=== PATIENT | male | born 1975 | race African-American/Black ===

== ENCOUNTER 2022-09-02 12:44 | Inpatient (IN) | payer OTHER ==
[2022-09-02] MEDS ORDERED: MAGNESIUM HYDROX 2400MG/30ML ORAL SUSPENSION 30 ML CUP PO PRN (16:00)
[2022-09-02] MEDS ORDERED: ACETAMINOPHEN 325 MG TABLET (FP) PO PRN ×2 (16:00)
[2022-09-02] MEDS ORDERED: BISMUTH SUBSALICYLATE 524 MG/30 ML PO PRN (16:00)
[2022-09-02] MEDS ORDERED: LOPERAMIDE HCL 2 MG CAPSULE PO PRN (16:00)
[2022-09-02] MEDS ORDERED: MAG HYDROX/AL HYDROX/SIMETH 30 ML UNIT-DOSE CUP PO PRN (16:00)
[2022-09-02] MEDS ORDERED: NALOXONE HCL (KLOXXADO) 8 MG SPRAY NS PRN (16:00)
[2022-09-02] MEDS ORDERED: MAGNESIUM CITRATE 300 ML BOTTLE PO PRN (16:00)
[2022-09-02] MEDS ORDERED: BENZOCAINE/MENTHOL (CHLORASEPTIC ) LOZENGE MM PRN (16:00)
[2022-09-02] MEDS ORDERED: DICYCLOMINE HCL 10 MG CAPSULE PO PRN (16:00)
[2022-09-02] MEDS ORDERED: IBUPROFEN 600 MG TABLET (FP) PO PRN (16:00)
[2022-09-02] MEDS ORDERED: ONDANSETRON *ODT* 4 MG TABLET SL PRN (16:00)
[2022-09-02] MEDS ORDERED: IBUPROFEN 400 MG TABLET (FP) PO PRN (16:00)
[2022-09-02] MEDS ORDERED: NICOTINE 10 MG CARTRIDGE (INHALER) IH PRN (16:00)
[2022-09-02] MEDS: METHOCARBAMOL 500 MG TABLET PO PRN (17:17)
[2022-09-02] MEDS: hydrOXYzine PAMOATE 25 MG CAPSULE (FP) PO PRN (17:17)
[2022-09-02] MEDS: MELATONIN 5 MG TABLETS PO SCH ×2 (22:44→22:48)
[2022-09-02] MEDS: THIAMINE HCL 100 MG TABLET (FP) PO SCH ×2 (22:44→22:47)
[2022-09-03] MEDS: PRENATAL VITAMINS W/ FOLIC ACID TABLET (FP) PO SCH (10:49)
[2022-09-03] MEDS: hydrOXYzine PAMOATE 25 MG CAPSULE (FP) PO PRN ×2 (10:50→22:22)
[2022-09-03] MEDS: METHOCARBAMOL 500 MG TABLET PO PRN (10:50)
[2022-09-03] MEDS: NICOTINE 21 MG/24 HOURS TOPICAL PATCH TD SCH (10:51)
[2022-09-03 11:27] LABS: HEMATOCRIT 41.9 % (35.4-49); HEMOGLOBIN 13.6 GM/dL (11.7-16.9); MCH 29.8 pg (25.7-33.7); MCHC 32.4 g/dl (32.0-35.9); MEAN CELL VOLUME 91.9 fl (80-96); MEAN PLT VOLUME 7.9 fl (7.5-11.1); PLATELET COUNT 314 10^3/uL (134-434); RBC 4.56 M/mm3 (4.00-5.60); RDW 15.1 % (11.9-15.9); WHITE BLOOD COUNT 4.6 K/mm3 (4.0-10.0)
[2022-09-03 11:32] LABS: ALBUMIN 3.4 g/dl (3.4-5.0); CALCIUM 8.9 mg/dL (8.5-10.1)
[2022-09-03 11:33] LABS: BLOOD UREA NITROGEN 11.4 mg/dL (7-18)
[2022-09-03 11:37] LABS: BILIRUBIN,TOTAL 0.6 mg/dL (0.2-1); CREATININE 1.1 mg/dL (0.55-1.3); TOT PROT 6.6 g/dl (6.4-8.2)
[2022-09-03] MEDS: MELATONIN 5 MG TABLETS PO SCH (22:22)
[2022-09-03] MEDS: THIAMINE HCL 100 MG TABLET (FP) PO SCH (22:22)
[2022-09-04 09:48] VITALS: BP 123/71; PULSE 88; RESP 16; TEMP 97.5
[2022-09-04] MEDS: PRENATAL VITAMINS W/ FOLIC ACID TABLET (FP) PO SCH (11:02)
[2022-09-04] MEDS: NICOTINE 21 MG/24 HOURS TOPICAL PATCH TD SCH (11:02)
== END 2022-09-04 11:25 | disposition other institution (70) | DRG 774 ==
LOC: YASAS 12:44 → Y6N 16:38
PROVIDERS: ADMIT Allergy & Immunology; ATTEND Surgery
PROC: HZ2ZZZZ Detoxification Services for Substance Abuse Treatment (ICD-10-PCS; principal; 2022-09-02)
DX: F10.230 Alcohol dependence with withdrawal, uncomplicated (principal); F14.10 Cocaine abuse, uncomplicated; F12.20 Cannabis dependence, uncomplicated; F17.210 Nicotine dependence, cigarettes, uncomplicated; Z28.310 Unvaccinated for COVID-19; Z28.9 Immunization not carried out for unspecified reason; Z59.00 Homelessness unspecified
CPT/HCPCS: 36415; 80053; 85027; 86780; C9803-CS; U0003; U0005

== ENCOUNTER 2022-09-04 14:31 | Inpatient (IN) | payer OTHER ==
[2022-09-04 15:31] VITALS: BMI 30.9
[2022-09-04] MEDS ORDERED: LOPERAMIDE HCL 2 MG CAPSULE PO PRN (18:27)
[2022-09-04] MEDS ORDERED: MAGNESIUM CITRATE 300 ML BOTTLE PO PRN (18:27)
[2022-09-04] MEDS ORDERED: P-EPHED 60MG/TRIPROLIDI 2.5MG TABLET PO PRN (18:27)
[2022-09-04] MEDS ORDERED: BENZOCAINE/MENTHOL (CHLORASEPTIC ) LOZENGE MM PRN (18:27)
[2022-09-04] MEDS ORDERED: MAGNESIUM HYDROX 2400MG/30ML ORAL SUSPENSION 30 ML CUP PO PRN (18:27)
[2022-09-04] MEDS ORDERED: guaiFENesin 200 MG/10 ML 10 ML UNIT-DOSE CUPS PO PRN (18:27)
[2022-09-04] MEDS ORDERED: MAG HYDROX/AL HYDROX/SIMETH 30 ML UNIT-DOSE CUP PO PRN (18:27)
[2022-09-04] MEDS: THIAMINE HCL 100 MG TABLET (FP) PO SCH (22:58)
[2022-09-04] MEDS: MELATONIN 5 MG TABLETS PO SCH (22:58)
[2022-09-05] MEDS: PRENATAL VITAMINS W/ FOLIC ACID TABLET (FP) PO SCH (09:57)
[2022-09-05] MEDS: NICOTINE 10 MG CARTRIDGE (INHALER) IH PRN (09:58)
[2022-09-05] MEDS ORDERED: NICOTINE 7 MG/24 HOURS TOPICAL PATCH TD SCH (10:00)
[2022-09-05] MEDS ORDERED: NICOTINE 7 MG/24 HOURS TOPICAL PATCH TD PRN (14:36)
[2022-09-05] MEDS: MELATONIN 5 MG TABLETS PO SCH (21:17)
[2022-09-05] MEDS: THIAMINE HCL 100 MG TABLET (FP) PO SCH (21:17)
[2022-09-05] MEDS: hydrOXYzine PAMOATE 25 MG CAPSULE (FP) PO PRN (21:18)
[2022-09-06] MEDS: PRENATAL VITAMINS W/ FOLIC ACID TABLET (FP) PO SCH (10:03)
[2022-09-06] MEDS: NICOTINE 10 MG CARTRIDGE (INHALER) IH PRN (10:04)
[2022-09-06] MEDS: THIAMINE HCL 100 MG TABLET (FP) PO SCH (21:16)
[2022-09-06] MEDS: MELATONIN 5 MG TABLETS PO SCH (21:16)
[2022-09-06] MEDS: hydrOXYzine PAMOATE 25 MG CAPSULE (FP) PO PRN (21:17)
[2022-09-07] MEDS: IBUPROFEN 400 MG TABLET (FP) PO PRN ×2 (06:33→17:56)
[2022-09-07] MEDS: NICOTINE 10 MG CARTRIDGE (INHALER) IH PRN (09:59)
[2022-09-07] MEDS: PRENATAL VITAMINS W/ FOLIC ACID TABLET (FP) PO SCH (09:59)
[2022-09-07] MEDS: METHOCARBAMOL 750 MG TABLET PO SCH ×2 (13:15→21:06)
[2022-09-07] MEDS: THIAMINE HCL 100 MG TABLET (FP) PO SCH (21:06)
[2022-09-07] MEDS: MELATONIN 5 MG TABLETS PO SCH (21:06)
[2022-09-07] MEDS: hydrOXYzine PAMOATE 25 MG CAPSULE (FP) PO PRN (21:06)
[2022-09-08] MEDS: METHOCARBAMOL 750 MG TABLET PO SCH ×3 (06:38→21:16)
[2022-09-08] MEDS: PRENATAL VITAMINS W/ FOLIC ACID TABLET (FP) PO SCH (09:58)
[2022-09-08] MEDS: hydrOXYzine PAMOATE 25 MG CAPSULE (FP) PO PRN (21:16)
[2022-09-08] MEDS: MELATONIN 5 MG TABLETS PO SCH (21:16)
[2022-09-08] MEDS: THIAMINE HCL 100 MG TABLET (FP) PO SCH (21:16)
[2022-09-09] MEDS: METHOCARBAMOL 750 MG TABLET PO SCH ×3 (06:16→21:19)
[2022-09-09] MEDS: IBUPROFEN 400 MG TABLET (FP) PO PRN (09:17)
[2022-09-09] MEDS: PRENATAL VITAMINS W/ FOLIC ACID TABLET (FP) PO SCH (10:36)
[2022-09-09] MEDS: ACETAMINOPHEN 325 MG TABLET (FP) PO PRN (11:51)
[2022-09-09] MEDS: hydrOXYzine PAMOATE 25 MG CAPSULE (FP) PO PRN (21:18)
[2022-09-09] MEDS: MELATONIN 5 MG TABLETS PO SCH (21:18)
[2022-09-09] MEDS: THIAMINE HCL 100 MG TABLET (FP) PO SCH (21:19)
[2022-09-10] MEDS: METHOCARBAMOL 750 MG TABLET PO SCH ×3 (07:27→21:27)
[2022-09-10] MEDS: IBUPROFEN 400 MG TABLET (FP) PO PRN (09:03)
[2022-09-10] MEDS: PRENATAL VITAMINS W/ FOLIC ACID TABLET (FP) PO SCH (10:29)
[2022-09-10] MEDS: MELATONIN 5 MG TABLETS PO SCH (21:27)
[2022-09-10] MEDS: hydrOXYzine PAMOATE 25 MG CAPSULE (FP) PO PRN (21:27)
[2022-09-10] MEDS: THIAMINE HCL 100 MG TABLET (FP) PO SCH (21:27)
[2022-09-11] MEDS: METHOCARBAMOL 750 MG TABLET PO SCH ×3 (06:11→21:21)
[2022-09-11] MEDS: ACETAMINOPHEN 325 MG TABLET (FP) PO PRN (09:08)
[2022-09-11] MEDS: PRENATAL VITAMINS W/ FOLIC ACID TABLET (FP) PO SCH (09:08)
[2022-09-11] MEDS: NICOTINE 10 MG CARTRIDGE (INHALER) IH PRN (09:09)
[2022-09-11] MEDS: IBUPROFEN 400 MG TABLET (FP) PO PRN (16:42)
[2022-09-11] MEDS: hydrOXYzine PAMOATE 25 MG CAPSULE (FP) PO PRN (21:21)
[2022-09-11] MEDS: MELATONIN 5 MG TABLETS PO SCH (21:21)
[2022-09-11] MEDS: THIAMINE HCL 100 MG TABLET (FP) PO SCH (21:21)
[2022-09-12] MEDS: METHOCARBAMOL 750 MG TABLET PO SCH ×3 (07:26→21:26)
[2022-09-12] MEDS: IBUPROFEN 400 MG TABLET (FP) PO PRN (09:15)
[2022-09-12] MEDS: PRENATAL VITAMINS W/ FOLIC ACID TABLET (FP) PO SCH (10:36)
[2022-09-12] MEDS: MELATONIN 5 MG TABLETS PO SCH (21:25)
[2022-09-12] MEDS: THIAMINE HCL 100 MG TABLET (FP) PO SCH (21:25)
[2022-09-12] MEDS: hydrOXYzine PAMOATE 25 MG CAPSULE (FP) PO PRN (21:26)
[2022-09-13] MEDS: METHOCARBAMOL 750 MG TABLET PO SCH ×3 (06:31→21:26)
[2022-09-13] MEDS: PRENATAL VITAMINS W/ FOLIC ACID TABLET (FP) PO SCH (09:58)
[2022-09-13] MEDS: IBUPROFEN 400 MG TABLET (FP) PO PRN (17:18)
[2022-09-13] MEDS: hydrOXYzine PAMOATE 25 MG CAPSULE (FP) PO PRN (21:26)
[2022-09-13] MEDS: THIAMINE HCL 100 MG TABLET (FP) PO SCH (21:26)
[2022-09-13] MEDS: MELATONIN 5 MG TABLETS PO SCH (21:27)
[2022-09-14] MEDS: METHOCARBAMOL 750 MG TABLET PO SCH ×3 (06:49→21:24)
[2022-09-14] MEDS: PRENATAL VITAMINS W/ FOLIC ACID TABLET (FP) PO SCH (10:21)
[2022-09-14] MEDS: IBUPROFEN 400 MG TABLET (FP) PO PRN (13:02)
[2022-09-14] MEDS: METHYL SALICYLATE/MENTHOL OINT 30 GM TUBE TP PRN (13:02)
[2022-09-14] MEDS: MELATONIN 5 MG TABLETS PO SCH (21:24)
[2022-09-14] MEDS: hydrOXYzine PAMOATE 25 MG CAPSULE (FP) PO PRN (21:24)
[2022-09-14] MEDS: THIAMINE HCL 100 MG TABLET (FP) PO SCH (21:24)
[2022-09-14] MEDS: ACETAMINOPHEN 325 MG TABLET (FP) PO PRN (22:12)
[2022-09-15] MEDS: METHOCARBAMOL 750 MG TABLET PO SCH ×3 (06:55→21:29)
[2022-09-15] MEDS: PRENATAL VITAMINS W/ FOLIC ACID TABLET (FP) PO SCH (09:43)
[2022-09-15] MEDS: IBUPROFEN 400 MG TABLET (FP) PO PRN (14:44)
[2022-09-15] MEDS: MELATONIN 5 MG TABLETS PO SCH (21:28)
[2022-09-15] MEDS: THIAMINE HCL 100 MG TABLET (FP) PO SCH (21:28)
[2022-09-15] MEDS: hydrOXYzine PAMOATE 25 MG CAPSULE (FP) PO PRN (21:29)
[2022-09-16] MEDS: METHOCARBAMOL 750 MG TABLET PO SCH ×3 (06:33→21:24)
[2022-09-16] MEDS: PRENATAL VITAMINS W/ FOLIC ACID TABLET (FP) PO SCH (10:17)
[2022-09-16] MEDS: IBUPROFEN 400 MG TABLET (FP) PO PRN (11:52)
[2022-09-16] MEDS: hydrOXYzine PAMOATE 25 MG CAPSULE (FP) PO PRN (21:23)
[2022-09-16] MEDS: MELATONIN 5 MG TABLETS PO SCH (21:23)
[2022-09-16] MEDS: THIAMINE HCL 100 MG TABLET (FP) PO SCH (21:23)
[2022-09-17] MEDS: METHOCARBAMOL 750 MG TABLET PO SCH ×3 (07:39→21:40)
[2022-09-17] MEDS: PRENATAL VITAMINS W/ FOLIC ACID TABLET (FP) PO SCH (09:56)
[2022-09-17] MEDS: THIAMINE HCL 100 MG TABLET (FP) PO SCH (21:40)
[2022-09-17] MEDS: hydrOXYzine PAMOATE 25 MG CAPSULE (FP) PO PRN (21:40)
[2022-09-17] MEDS: MELATONIN 5 MG TABLETS PO SCH (21:41)
[2022-09-18] MEDS: METHOCARBAMOL 750 MG TABLET PO SCH ×3 (06:49→21:19)
[2022-09-18] MEDS: PRENATAL VITAMINS W/ FOLIC ACID TABLET (FP) PO SCH (09:45)
[2022-09-18] MEDS: IBUPROFEN 400 MG TABLET (FP) PO PRN (11:24)
[2022-09-18] MEDS: THIAMINE HCL 100 MG TABLET (FP) PO SCH (21:19)
[2022-09-18] MEDS: MELATONIN 5 MG TABLETS PO SCH (21:19)
[2022-09-18] MEDS: NICOTINE 10 MG CARTRIDGE (INHALER) IH PRN (21:19)
[2022-09-18] MEDS: hydrOXYzine PAMOATE 25 MG CAPSULE (FP) PO PRN (21:19)
[2022-09-19] MEDS: METHOCARBAMOL 750 MG TABLET PO SCH ×3 (06:46→21:19)
[2022-09-19] MEDS: PRENATAL VITAMINS W/ FOLIC ACID TABLET (FP) PO SCH (09:52)
[2022-09-19] MEDS: hydrOXYzine PAMOATE 25 MG CAPSULE (FP) PO PRN (21:19)
[2022-09-19] MEDS: MELATONIN 5 MG TABLETS PO SCH (21:19)
[2022-09-19] MEDS: THIAMINE HCL 100 MG TABLET (FP) PO SCH (21:19)
[2022-09-20] MEDS: METHOCARBAMOL 750 MG TABLET PO SCH ×3 (06:15→21:02)
[2022-09-20] MEDS: PRENATAL VITAMINS W/ FOLIC ACID TABLET (FP) PO SCH (09:51)
[2022-09-20] MEDS: NICOTINE 10 MG CARTRIDGE (INHALER) IH PRN (09:54)
[2022-09-20] MEDS: MELATONIN 5 MG TABLETS PO SCH (21:02)
[2022-09-20] MEDS: hydrOXYzine PAMOATE 25 MG CAPSULE (FP) PO PRN (21:02)
[2022-09-20] MEDS: THIAMINE HCL 100 MG TABLET (FP) PO SCH (21:02)
[2022-09-21] MEDS: METHOCARBAMOL 750 MG TABLET PO SCH ×3 (07:40→21:21)
[2022-09-21] MEDS: PRENATAL VITAMINS W/ FOLIC ACID TABLET (FP) PO SCH (09:13)
[2022-09-21] MEDS: IBUPROFEN 400 MG TABLET (FP) PO PRN (09:14)
[2022-09-21] MEDS: MELATONIN 5 MG TABLETS PO SCH (21:21)
[2022-09-21] MEDS: THIAMINE HCL 100 MG TABLET (FP) PO SCH (21:21)
[2022-09-21] MEDS: hydrOXYzine PAMOATE 25 MG CAPSULE (FP) PO PRN (21:22)
[2022-09-22] MEDS: METHOCARBAMOL 750 MG TABLET PO SCH ×3 (06:24→21:26)
[2022-09-22] MEDS: PRENATAL VITAMINS W/ FOLIC ACID TABLET (FP) PO SCH (10:01)
[2022-09-22] MEDS: THIAMINE HCL 100 MG TABLET (FP) PO SCH (21:26)
[2022-09-22] MEDS: hydrOXYzine PAMOATE 25 MG CAPSULE (FP) PO PRN (21:26)
[2022-09-22] MEDS: MELATONIN 5 MG TABLETS PO SCH (21:26)
[2022-09-23] MEDS: METHOCARBAMOL 750 MG TABLET PO SCH ×3 (06:12→21:20)
[2022-09-23] MEDS: METHYL SALICYLATE/MENTHOL OINT 30 GM TUBE TP PRN (10:13)
[2022-09-23] MEDS: PRENATAL VITAMINS W/ FOLIC ACID TABLET (FP) PO SCH (10:13)
[2022-09-23] MEDS: hydrOXYzine PAMOATE 25 MG CAPSULE (FP) PO PRN (21:20)
[2022-09-23] MEDS: THIAMINE HCL 100 MG TABLET (FP) PO SCH (21:20)
[2022-09-23] MEDS: MELATONIN 5 MG TABLETS PO SCH (21:20)
[2022-09-24] MEDS: METHOCARBAMOL 750 MG TABLET PO SCH ×3 (06:39→21:15)
[2022-09-24] MEDS: PRENATAL VITAMINS W/ FOLIC ACID TABLET (FP) PO SCH (09:08)
[2022-09-24] MEDS: IBUPROFEN 400 MG TABLET (FP) PO PRN (11:07)
[2022-09-24] MEDS: THIAMINE HCL 100 MG TABLET (FP) PO SCH (21:15)
[2022-09-24] MEDS: MELATONIN 5 MG TABLETS PO SCH (21:15)
[2022-09-24] MEDS: hydrOXYzine PAMOATE 25 MG CAPSULE (FP) PO PRN (21:16)
[2022-09-25] MEDS: METHOCARBAMOL 750 MG TABLET PO SCH ×3 (06:45→21:18)
[2022-09-25] MEDS: PRENATAL VITAMINS W/ FOLIC ACID TABLET (FP) PO SCH (10:17)
[2022-09-25] MEDS: IBUPROFEN 400 MG TABLET (FP) PO PRN (10:18)
[2022-09-25] MEDS: THIAMINE HCL 100 MG TABLET (FP) PO SCH (21:18)
[2022-09-25] MEDS: hydrOXYzine PAMOATE 25 MG CAPSULE (FP) PO PRN (21:18)
[2022-09-25] MEDS: MELATONIN 5 MG TABLETS PO SCH (21:18)
[2022-09-26] MEDS: METHOCARBAMOL 750 MG TABLET PO SCH ×3 (07:16→21:18)
[2022-09-26] MEDS: PRENATAL VITAMINS W/ FOLIC ACID TABLET (FP) PO SCH (10:05)
[2022-09-26] MEDS: IBUPROFEN 400 MG TABLET (FP) PO PRN ×2 (13:16→18:17)
[2022-09-26] MEDS: MELATONIN 5 MG TABLETS PO SCH (21:18)
[2022-09-26] MEDS: THIAMINE HCL 100 MG TABLET (FP) PO SCH (21:18)
[2022-09-27] MEDS: METHOCARBAMOL 750 MG TABLET PO SCH ×3 (06:38→21:15)
[2022-09-27 06:46] VITALS: PULSE 67; RESP 16
[2022-09-27] MEDS: PRENATAL VITAMINS W/ FOLIC ACID TABLET (FP) PO SCH (09:48)
[2022-09-27] MEDS: MELATONIN 5 MG TABLETS PO SCH (21:15)
[2022-09-27] MEDS: hydrOXYzine PAMOATE 25 MG CAPSULE (FP) PO PRN (21:15)
[2022-09-27] MEDS: THIAMINE HCL 100 MG TABLET (FP) PO SCH (21:15)
[2022-09-28] MEDS: METHOCARBAMOL 750 MG TABLET PO SCH ×3 (06:39→21:21)
[2022-09-28] MEDS: PRENATAL VITAMINS W/ FOLIC ACID TABLET (FP) PO SCH (09:51)
[2022-09-28] MEDS: MELATONIN 5 MG TABLETS PO SCH (21:21)
[2022-09-28] MEDS: hydrOXYzine PAMOATE 25 MG CAPSULE (FP) PO PRN (21:21)
[2022-09-28] MEDS: THIAMINE HCL 100 MG TABLET (FP) PO SCH (21:21)
[2022-09-29] MEDS: METHOCARBAMOL 750 MG TABLET PO SCH (06:25)
[2022-09-29 06:53] VITALS: BP 108/68; TEMP 97.3
[2022-09-29] MEDS: PRENATAL VITAMINS W/ FOLIC ACID TABLET (FP) PO SCH (09:04)
== END 2022-09-29 09:22 | disposition home or self-care (01) | DRG 772 ==
LOC: YASAS 14:31 → Y3E 18:36
PROVIDERS: ADMIT Allergy & Immunology; ATTEND Surgery
PROC: HZ42ZZZ Group Counseling for Substance Abuse Treatment, Cognitive-Behavioral (ICD-10-PCS; principal; 2022-09-04)
DX: F10.20 Alcohol dependence, uncomplicated (principal); F14.20 Cocaine dependence, uncomplicated; F12.20 Cannabis dependence, uncomplicated; M25.512 Pain in left shoulder; M77.8 Other enthesopathies, not elsewhere classified; Z28.310 Unvaccinated for COVID-19; Z28.9 Immunization not carried out for unspecified reason
CPT/HCPCS: 73030-TC-LT-FY; C9803-CS; U0003; U0005